=== PATIENT | female | born 1970 | race Caucasian/White ===

== ENCOUNTER 2016-05-15 19:27 | Emergency (ER) | payer OTHER ==
--- NOTE | 2016-05-15 20:31 | DIAGNOSTIC IMAGING REPORT ---
PROCEDURE: XR CHEST 1 VIEW INDICATION: CHEST PAIN, initial encounter TECHNIQUE: Portable AP view 07:50 p.m. COMPARISON: Chest x-ray 04/03/2016 FINDINGS: Lungs are clear. Heart and mediastinum are normal. Thorax is normal. No significant interval change. IMPRESSION: 1. Negative chest.
--- NOTE | 2016-05-15 22:17 | ED NURSING NOTES ---
Clinical Report - Nurses [facility] [address] [place] [address] 05/15/2016 19:27 Patient: JOE CHRISTOPHER TRIAGE Triage time 19:30. Acuity: LEVEL 2. Chief Complaint: CHEST PAIN and SHORTNESS OF BREATH. Alert. --19:35 Lilly Nunez R.N. 19:30 05/15/16. BP: 146/101. HR: 90. RR: 20. O2 saturation: 97%. Temp: 98.2 F (oral). Pain level now: 02/04. --19:35 Lilly Nunez R.N. Weight: 95.2 kg stated. Height/Length: 66.5 inches Per Patient. BMI: 33.4. --19:34 Lilly Nunez R.N. Medications Coumadin Oral (Tablet 5 mg) 1 tablet, daily. LORazepam Oral 2 mg, PRN. Methadone HCl Oral 10mg, daily. Omeprazole Oral 40 mg, daily. Oxybutynin Chloride Oral (Tablet 5 mg) 1 tablet, 2x a day. Propranolol HCl CR Oral 40mg , daily. SUMAtriptan Succinate Oral 100mg. Topiramate Oral 100 mg, 2x a day. TraZODone HCl Oral 300mg, at bedtime. Zofran Oral. --19:32 Lilly Nunez R.N. Percocet Oral (Tablet 10-325 mg), 2x a day. --19:33 Lilly Nunez R.N. Allergies Chantix. Definite Moderate (More depressed) Reglan. Definite Severe (Hallucinations) --19:32 Lilly Nunez R.N. History Arrived by private vehicle. Historian: patient. Accompanied by spouse. Primary physician (zeferino). This started yesterday. Onset. (extreme pain began 10min ago). She has had nausea. 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 PAST MEDICAL HX: Immunizations: up-to-date. SOCIAL HX: Heavy tobacco smoker (cigarette)- less than 1 pack per day. No alcohol use or drug use. NUTRITIONAL RISK ASSESSMENT: The nutritional risk assessment revealed no deficiencies. FUNCTIONAL ASSESSMENT: Functional assessment: no impairments noted. --19:35 Lilly Nunez R.N. PROBLEMS: Anxiety Reaction. Chest Pain. Migraine Headache. Near Syncope. Torticollis. Costochondritis. Atypical Chest Pain. Pulmonary Embolism. Fibromyalgia. Pancreatitis. Hyperlipidemia. Hypertension. Immunizations. Hypercholesterolemia. Depression. Arthritis. Abdominal Pain. Vomiting. Back Pain. Headache. --19:34 Lilly Nunez R.N. Migraine Headache [RuleOut]. Gastroenteritis [RuleOut]. Pancreatitis [RuleOut]. --19:34 Lilly Nunez R.N. ADDITIONAL SURGERIES: Back Surgery. Carpal Tunnel Surgery. Dental Surgery. Hysterectomy. Oophorectomy. --19:34 Lilly Nunez R.N. Interventions ID band on patient. To treatment room. --19:35 Lilly Nunez R.N. PHYSICAL ASSESSMENT To room via wheelchair. Patient gowned. GENERAL / NEURO / PSYCH: Alert. Oriented X 4. Appears anxious. RESPIRATORY: Respirations not labored. CVS: Capillary refill less than 2 seconds. SKIN: Skin is warm and dry. --19:35 Lilly Nunez R.N. NURSING PROGRESS NOTES Head of bed elevated. Two patient identifiers checked. Call light placed in reach. Side rails up x 1. Bed placed in lowest position. Brakes of bed on. --19:35 Lilly Nunez R.N. air sampling and monitoring, pulse oximeter and NIBP monitor placed on patient; monitor alarms on. --19:35 Lilly Nunez R.N. 19:36 05/15/2016 Site #1 started via IV in the left antecubital space with an 20g angiocath, with aseptic technique and good blood return; one attempt. Blood drawn: rainbow set. Labeled in the presence of the patient and sent to the lab. Saline lock flushed with 10 mL saline (started by Randa Polanco RN). --19:36 Lilly Nunez R.N. Oxygen administered by nasal cannula at 2 liters. --19:38 Lilly Nunez R.N. EKG time: (19:38). EKG was performed by a tech and shown to the ED physician. --19:39 Lilly Nunez R.N. 19:36- pt states pain just suddenly stopped. --19:39 Lilly Nunez R.N. 20:02. Portable chest x-ray performed. --20:02 Susu Babcock, ER Tech1 Telemetry strip posted to chart. --20:04 Susu Babcock, ER Tech1 21:43 05/15/16. BP: 127/89. HR: 86. RR: 15. O2 saturation: 100% on room air. --21:43 Lilly Nunez R.N. Patient and family informed about reason for wait and about plan of care. --22:04 Lilly Nunez R.N. 22:24 05/15/2016 Lovenox (Enoxaparin Sodium) Subcutaneous 40 mg given. Given in the right abdomen. Allergies verified and confirmed 5 rights. --22:27 Lilly Nunez R.N. DISPOSITION / DISCHARGE 22:25 05/15/2016 Site #1 removed upon admission. Catheter intact. Manual pressure and bandage applied. --22:28 Lilly Nunez R.N. Condition at departure: improved and stable. No learning barriers present. Discharge instructions provided and reviewed with the patient. Patient verbalized understanding. Written instructions provided in Russian. ( extensive teaching done concerning "if this happens again, what to do", pt instructed to call on-call MD from PCP office and discuss if pt should go to ED or not. Patient states understanding & agrees to plan of care.). The patient was discharged home and accompanied by spouse. She left the Emergency Department ambulatory and via private vehicle. Spouse driving. --22:30 Lilly Nunez R.N. 22:27 05/15/16. BP: 111/72. HR: 76. RR: 24. O2 saturation: 100% on room air. Temp: deferred. Ross-Umana pain scale: 2/10. --22:30 Lilly Nunez R.N. Locked/Released at 05/15/2016 22:30 by Lilly Nunez R.N.
--- NOTE | 2016-05-15 22:17 | ED ORDER SUMMARY ---
..... Patient: JOE CHRISTOPHER OrderSheet [facility] VisitID: [id number] [address] [place] [address] 45y, F Registration Date/Time: 05/15/2016 ORDER SHEET Weight: 95.2 kg (stated) Allergies: Chantix, Reglan GENERAL ORDERS: Chest 1V Urgent (19:31 05/15/2016 Charanjit VIEIRA) (Ack 19:34 NHouse ER Tech1) (20:04 AMcQuoid ER Tech1) Hse Advisor (Continuous) (19:05/15/2016 Charanjit VIEIRA) (19:37 RCollier R.N.) CBC w Diff Urgent (:05/15/2016 Charanjit VIEIRA) (Ack 19:34 [place] ER TechToya) (22:02 RCollier R.N.) CMP Urgent (19:05/15/2016 Charanjit VIEIRA) (Ack 19:34 [place] ER Tech1) (22:02 RCollier R.N.) UA-Culture if indicated Urgent (19:32 05/15/2016 Charanjit VIEIRA) (Ack 19:34 [place] ER Etta) (21:58 Charanjit VIEIRA) (Cancelled: Other21:58 Charanjit VIEIRA) PT with INR Urgent (19:32 05/15/2016 Charanjit VIEIRA) (Ack 19:34 [place] ER TechToya) (22:02 RCollier R.N.) PTT Urgent (19:32 05/15/2016 Charanjit VIEIRA) (Ack 19:34 [place] ER TechToya) (22:02 RCollier R.N.) Amylase Urgent (19:32 05/15/2016 Charanjit VIEIRA) (Ack 19:34 [place] ER TechToya) (22:02 RCollier R.N.) Lipase Urgent (19:05/15/2016 Charanjit VIEIRA) (Ack 19:34 [place] ER TechToya) (22:02 RCollier R.N.) BNP Urgent (19:32 05/15/2016 Charanjit VIEIRA) (Ack 19:34 MDouse ER TechToya) (22:02 RCollier R.N.) D-Dimer Urgent (19:32 05/15/2016 Charanjit VIEIRA) (Ack 19:34 MDouse ER Tech1) (22:02 RCollier R.N.) CPK Urgent (19:32 05/15/2016 Charanjit VIEIRA) (Ack 19:34 MDouse ER Tech1) (22:02 RCollier R.N.) Troponin-I Urgent (19:32 05/15/2016 Charanjit VIEIRA) (Ack 19:34 MDouse ER Tech1) (22:02 RCollier R.N.) Urine Urgent (19:32 05/15/2016 Charanjit VIEIRA) (Ack 19:34 MDouse ER Tech1) Oxygen (2 L/min) (NC) (19:32 05/15/2016 Charanjit VIEIRA) (19:37 RCollier R.N.) Pulse oximeter (19:32 05/15/2016 Charanjit VIEIRA) (19:37 RCollier R.N.) EKG - ER Stat (19:32 05/15/2016 Charanjit VIEIRA) (19:37 RCollier R.N.) MEDICATION ORDERS: Aspirin PO 325 mg (Do not crush or chew, NOW) (19:32 05/15/2016 Charanjit VIEIRA) (Ack 19:37 RCollier R.N.) Lovenox Subcut 40 mg (HIGH ALERT MEDICATION, NOW) (22:07 05/15/2016 Charanjit VIEIRA) (Ack 22:13 RCollier R.N.) (22:27 RCollier R.N.) IV FLUIDS: IV Saline Lock (19:32 05/15/2016 Charanjit VIEIRA) (Ack 19:37 RCollier R.N.) ORDER SHEET NOTES: [Electronically signed by Lilly Nunez R.N. (22:30 05/15/2016)] [Electronically signed by Josue Cuadra MD (04:49 05/17/2016)] [Electronically locked/signed by Lilly Nunez R.N. (22:30 05/15/2016)]
--- NOTE | 2016-05-15 22:17 | ED NURSING NOTES ---
Clinical Report - Nurses [facility] [address] [place] [address] 05/15/2016 19:27 Patient: JOE CHRISTOPHER TRIAGE Triage time 19:30. Acuity: LEVEL 2. Chief Complaint: CHEST PAIN and SHORTNESS OF BREATH. Alert. --19:35 Lilly Nunez R.N. 19:30 05/15/16. BP: 146/101. HR: 90. RR: 20. O2 saturation: 97%. Temp: 98.2 F (oral). Pain level now: 02/04. --19:35 Lilly Nunez R.N. Weight: 95.2 kg stated. Height/Length: 66.5 inches Per Patient. BMI: 33.4. --19:34 Lilly Nunez R.N. Medications Coumadin Oral (Tablet 5 mg) 1 tablet, daily. LORazepam Oral 2 mg, PRN. Methadone HCl Oral 10mg, daily. Omeprazole Oral 40 mg, daily. Oxybutynin Chloride Oral (Tablet 5 mg) 1 tablet, 2x a day. Propranolol HCl CR Oral 40mg , daily. SUMAtriptan Succinate Oral 100mg. Topiramate Oral 100 mg, 2x a day. TraZODone HCl Oral 300mg, at bedtime. Zofran Oral. --19:32 Lilly Nunez R.N. Percocet Oral (Tablet 10-325 mg), 2x a day. --19:33 Lilly Nunez R.N. Allergies Chantix. Definite Moderate (More depressed) Reglan. Definite Severe (Hallucinations) --19:32 Lilly Nunez R.N. History Arrived by private vehicle. Historian: patient. Accompanied by spouse. Primary physician (zeferino). This started yesterday. Onset. (extreme pain began 10min ago). She has had nausea. 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 PAST MEDICAL HX: Immunizations: up-to-date. SOCIAL HX: Heavy tobacco smoker (cigarette)- less than 1 pack per day. No alcohol use or drug use. NUTRITIONAL RISK ASSESSMENT: The nutritional risk assessment revealed no deficiencies. FUNCTIONAL ASSESSMENT: Functional assessment: no impairments noted. --19:35 Lilly Nunez R.N. PROBLEMS: Anxiety Reaction. Chest Pain. Migraine Headache. Near Syncope. Torticollis. Costochondritis. Atypical Chest Pain. Pulmonary Embolism. Fibromyalgia. Pancreatitis. Hyperlipidemia. Hypertension. Immunizations. Hypercholesterolemia. Depression. Arthritis. Abdominal Pain. Vomiting. Back Pain. Headache. --19:34 Lilly Nunez R.N. Migraine Headache [RuleOut]. Gastroenteritis [RuleOut]. Pancreatitis [RuleOut]. --19:34 Lilly Nunez R.N. ADDITIONAL SURGERIES: Back Surgery. Carpal Tunnel Surgery. Dental Surgery. Hysterectomy. Oophorectomy. --19:34 Lilly Nunez R.N. Interventions ID band on patient. To treatment room. --19:35 Lilly Nunez R.N. PHYSICAL ASSESSMENT To room via wheelchair. Patient gowned. GENERAL / NEURO / PSYCH: Alert. Oriented X 4. Appears anxious. RESPIRATORY: Respirations not labored. CVS: Capillary refill less than 2 seconds. SKIN: Skin is warm and dry. --19:35 Lilly Nunez R.N. NURSING PROGRESS NOTES Head of bed elevated. Two patient identifiers checked. Call light placed in reach. Side rails up x 1. Bed placed in lowest position. Brakes of bed on. --19:35 Lilly Nunez R.N. layout inspector, pulse oximeter and NIBP monitor placed on patient; monitor alarms on. --19:35 Lilly Nunez R.N. 19:36 05/15/2016 Site #1 started via IV in the left antecubital space with an 20g angiocath, with aseptic technique and good blood return; one attempt. Blood drawn: rainbow set. Labeled in the presence of the patient and sent to the lab. Saline lock flushed with 10 mL saline (started by Randa Polanco RN). --19:36 Lilly Nunez R.N. Oxygen administered by nasal cannula at 2 liters. --19:38 Lilly Nunez R.N. EKG time: (19:38). EKG was performed by a tech and shown to the ED physician. --19:39 Lilly Nunez R.N. 19:36- pt states pain just suddenly stopped. --19:39 Lilly Nunez R.N. 20:02. Portable chest x-ray performed. --20:02 Susu Babcock, ER Tech1 Telemetry strip posted to chart. --20:04 Susu Babcock, ER Tech1 21:43 05/15/16. BP: 127/89. HR: 86. RR: 15. O2 saturation: 100% on room air. --21:43 Lilly Nunez R.N. Patient and family informed about reason for wait and about plan of care. --22:04 Lilly Nunez R.N. 22:24 05/15/2016 Lovenox (Enoxaparin Sodium) Subcutaneous 40 mg given. Given in the right abdomen. Allergies verified and confirmed 5 rights. --22:27 Lilly Nunez R.N. DISPOSITION / DISCHARGE 22:25 05/15/2016 Site #1 removed upon admission. Catheter intact. Manual pressure and bandage applied. --22:28 Lilly Nunez R.N. Condition at departure: improved and stable. No learning barriers present. Discharge instructions provided and reviewed with the patient. Patient verbalized understanding. Written instructions provided in Kosovan. ( extensive teaching done concerning "if this happens again, what to do", pt instructed to call on-call MD from PCP office and discuss if pt should go to ED or not. Patient states understanding & agrees to plan of care.). The patient was discharged home and accompanied by spouse. She left the Emergency Department ambulatory and via private vehicle. Spouse driving. --22:30 Lilly Nunez R.N. 22:27 05/15/16. BP: 111/72. HR: 76. RR: 24. O2 saturation: 100% on room air. Temp: deferred. Ross-Umana pain scale: 2/10. --22:30 Lilly Nunez R.N. Locked/Released at 05/15/2016 22:30 by Lilly Nunez R.N.
--- NOTE | 2016-05-15 22:17 | ED ORDER SUMMARY ---
..... Patient: JOE CHRISTOPHER OrderSheet VisitID: [id number] [address] [place] [address] 45y, F Registration Date/Time: 05/15/2016 ORDER SHEET Weight: 95.2 kg (stated) Allergies: Chantix, Reglan GENERAL ORDERS: Chest 1V Urgent (19:31 05/15/2016 Charanjit VIEIRA) (Ack 19:34 NHouse ER Tech1) (20:04 AMcQuoid ER Tech1) Chief Vendor Quality (Continuous) (19:05/15/2016 Charanjit VIEIRA) (19:37 RCollier R.N.) CBC w Diff Urgent (:05/15/2016 Charanjit VIEIRA) (Ack 19:34 Commnet Wirelessouse ER TechToya) (22:02 RCollier R.N.) CMP Urgent (19:05/15/2016 Charanjit VIEIRA) (Ack 19:34 [employer]ouse ER Tech1) (22:02 RCollier R.N.) UA-Culture if indicated Urgent (19:32 05/15/2016 Charanjit VIEIRA) (Ack 19:34 [employer] ER Etta) (21:58 Charanjit VIEIRA) (Cancelled: Other21:58 Charanjit VIEIRA) PT with INR Urgent (19:32 05/15/2016 Charanjit VIEIRA) (Ack 19:34 [employer]ouse ER TechToya) (22:02 RCollier R.N.) PTT Urgent (19:32 05/15/2016 Charanjit VIEIRA) (Ack 19:34 [employer] ER TechToya) (22:02 RCollier R.N.) Amylase Urgent (19:32 05/15/2016 Charanjit VIEIRA) (Ack 19:34 [employer] ER TechToya) (22:02 RCollier R.N.) Lipase Urgent (19:05/15/2016 Charanjit VIEIRA) (Ack 19:34 [employer] ER TechToya) (22:02 RCollier R.N.) BNP Urgent (19:32 05/15/2016 Charanjit VIEIRA) (Ack 19:34 [place] ER TechToya) (22:02 RCollier R.N.) D-Dimer Urgent (19:32 05/15/2016 Charanjit VIEIRA) (Ack 19:34 UTouse ER Tech1) (22:02 RCollier R.N.) CPK Urgent (19:32 05/15/2016 Charanjit VIEIRA) (Ack 19:34 UTouse ER Tech1) (22:02 RCollier R.N.) Troponin-I Urgent (19:32 05/15/2016 Charanjit VIEIRA) (Ack 19:34 UTouse ER Tech1) (22:02 RCollier R.N.) Urine Urgent (19:32 05/15/2016 Charanjit VIEIRA) (Ack 19:34 UTouse ER Tech1) Oxygen (2 L/min) (NC) (19:32 05/15/2016 Charanjit VIEIRA) (19:37 RCollier R.N.) Pulse oximeter (19:32 05/15/2016 Charanjit VIEIRA) (19:37 RCollier R.N.) EKG - ER Stat (19:32 05/15/2016 Charanjit VIEIRA) (19:37 RCollier R.N.) MEDICATION ORDERS: Aspirin PO 325 mg (Do not crush or chew, NOW) (19:32 05/15/2016 Charanjit VIEIRA) (Ack 19:37 RCollier R.N.) Lovenox Subcut 40 mg (HIGH ALERT MEDICATION, NOW) (22:07 05/15/2016 Charanjit VIEIRA) (Ack 22:13 RCollier R.N.) (22:27 RCollier R.N.) IV FLUIDS: IV Saline Lock (19:32 05/15/2016 Charanjit VIEIRA) (Ack 19:37 RCollier R.N.) ORDER SHEET NOTES: [Electronically signed by Lilly Nunez R.N. (22:30 05/15/2016)] [Electronically signed by Josue Cuadra MD (04:49 05/17/2016)] [Electronically locked/signed by Lilly Nunez R.N. (22:30 05/15/2016)]
--- NOTE | 2016-05-15 22:17 | ED CLINICAL REPORT ---
Clinical Report - Physicians/Mid Levels [facility] [address] [place] [address] 05/15/2016 19:27 Patient: JOE CHRISTOPHER Time Seen: 19:31. Arrived- By private vehicle. Historian- patient. HISTORY OF PRESENT ILLNESS Chief Complaint: CHEST PAIN. At its maximum, severity described as 10 / 10. When seen in the E.D., severity described as 2 / 10. This started about 1 month ago and is still present. It was abrupt in onset and has been intermittent and waxing/waning. Onset during light activity. It is described as sharp and it is described as located in the central chest area and radiating to the left shoulder. The patient has had moderate difficulty breathing and nausea and has experienced diaphoresis. No vomiting. REVIEW OF SYSTEMS No chills, fever, calf pain, pedal edema or abdominal pain. No constipation, diarrhea, vomiting or urinary problems. She has experienced sweats and had joint pain (for about 1 week). She has had mild neck pain (L sided for about 1 week). She has had a cardiac stress test about 1 year ago. All systems otherwise negative, except as recorded above. PAST HISTORY PCP - Aashish. Problems: Anxiety Reaction. Chest Pain. Migraine Headache. Torticollis. Costochondritis. Atypical Chest Pain. Pulmonary Embolism. Fibromyalgia. Pancreatitis. Hyperlipidemia. Hypertension. Hypercholesterolemia. Depression. Abdominal Pain. Vomiting. Back Pain. Headache. Additional Surgeries: Back Surgery. Carpal Tunnel Surgery. Dental Surgery. Hysterectomy. Oophorectomy. Medications: Percocet Oral (Tablet 10-325 mg), 2x a day. Coumadin Oral (Tablet 5 mg) 1 tablet, daily. LORazepam Oral 2 mg, PRN. Methadone HCl Oral 10mg, daily. Omeprazole Oral 40 mg, daily. Oxybutynin Chloride Oral (Tablet 5 mg) 1 tablet, 2x a day. Propranolol HCl CR Oral 40mg , daily. SUMAtriptan Succinate Oral 100mg. Topiramate Oral 100 mg, 2x a day. TraZODone HCl Oral 300mg, at bedtime. Zofran Oral. Allergies: Chantix. Definite Moderate (More depressed) Reglan. Definite Severe (Hallucinations). SOCIAL HISTORY Current every day heavy tobacco smoker (cigarette)- less than 1 pack per day. No alcohol use or drug use. FAMILY HISTORY No history of aortic aneurysm or dissection. both parents have high cholesterol Mother with PE. ADDITIONAL NOTES The nursing notes have been reviewed. PHYSICAL EXAM Vital Signs: 05/15/2016 19:30 BP: 146/101. HR: 90. RR: 20. O2 saturation: 97%. Temp: 98.2 F. Pain level now: 02/04. Have been reviewed. Appearance: Alert. Eyes: Pupils equal, round and reactive to light. ENT: Pharynx normal. Neck: Normal inspection. Neck supple. CVS: Normal heart rate and rhythm. Heart sounds normal. Respiratory: No respiratory distress. Breath sounds normal. Abdomen: Soft and nontender. Bowel sounds normal. No organomegaly. No mass. Back: Normal external inspection. No CVA tenderness. Skin: Skin warm and dry. Normal skin color. Normal skin turgor. Extremities: Extremities exhibit normal ROM. No calf tenderness. No lower extremity edema. LABS, X-RAYS, AND EKG EKG: No acute process. Prior EKG unavailable. The study has been independently viewed by me. Chest X-ray: Normal Chest X-Ray. Laboratory Tests: CBC w Diff: (SAGAR: 05/15/2016 19:38) ( MsgRcvd 05/15/2016 19:48) Final results Test Result Flag Units (Reference) WHITE BLOOD COUNT 9.4 K/uL (4.5-11.5) RED BLOOD COUNT 5.34 H M/uL (4.00-5.20) HEMOGLOBIN 15.8 gm/dL (12.0-16.0) HEMATOCRIT 47.7 H % (36.0-46.0) MEAN CELL VOLUME 89 fL (80-100) MEAN CORPUSCULAR HGB 30 pg (26-34) MEAN CORPUSCULAR HGB CONC 33 g/dL (31-37) RED CELL DISTRIBUTION WIDTH 14.5 % (11.6-14.8) PLATELET COUNT 261 K/uL (150-400) NEUTROPHIL % 59.5 % (50-75) LYMPH % 31.5 % (25-40) MONO % 5.4 % (3-14) EOSINOPHIL % 2.5 % (0-4) BASOPHIL % 1.1 % (0-2) PT with INR: (SAGAR: 05/15/2016 19:38) ( [facility] [place] 05/15/2016 20:04) Final results Test Result Flag Units (Reference) INR 1.0 (0.8-1.2) Low Intensity Therapy: INR 1.5-2.0 PT range 18.5-23.1Mod.Intensity Therapy: INR 2.0-3.0 PT range 23.1-31.5High Intensity Therapy: INR 2.5-3.5 PT range 27.4-35.5High Intensity Therapy 2: INR 3.0-4.0 PT range 31.5-39.3 APTT 28 SECONDS (24-34) D-DIMER QUANTITATIVE < 0.27 L ug/mLFEU (0.27-0.52) The primary value of this quantitative assay relates toits negative predictive value (i.e. exclusion) of pulmonaryembolism/deep vein thrombosis/DIC.Elevated levels of d-dimer may also occur with:, age, cancer, inflammation, liver disease,post-op, infection, hematoma, coronary disease, peripheralarteriopathy, bleeding disorders and thrombolytic treatment.Results should be correlated with other clinical andradiological data.Testing Methodology: Latex Immunoassay BNP: (SAGAR: 05/15/2016 19:38) ( [facility] [place] 05/15/2016 20:14) Final results Test Result Flag Units (Reference) B-TYPE NATRIURETIC PEPTIDE < 5.0 L pg/ml (5-100) CMP: (SAGAR: 05/15/2016 19:38) ( [facility] [place] 05/15/2016 20:07) Final results Test Result Flag Units (Reference) GLUCOSE 98 mg/dL (70-110) BUN 14 mg/dL (7-18) CREATININE 0.9 mg/dL (0.6-1.3) Estimated GFR >60 mL/min Estimated GFR- >60 mL/min Note: Persistent reduction over 3 months in eGFR<60 mL/min/1.73 m2 defines CKD. Patients with eGFR values>=60 mL/min/1.73 m2 may also have CKD if evidence ofpersistent proteinuria. Additional information may be foundat www.kidney.org. SODIUM 139 mmol/L (136-145) POTASSIUM 3.8 mmol/L (3.5-5.1) CHLORIDE 103 mmol/L (98-107) CARBON DIOXIDE 26 mmol/L (21-32) CALCIUM 8.8 mg/dL (8.5-10.1) TOTAL PROTEIN 7.5 g/dL (6.4-8.2) ALBUMIN 4.0 g/dL (3.3-5.0) BILIRUBIN, TOTAL 0.3 mg/dL (0.0-1.0) ALKALINE PHOSPHATASE 119 H U/L (46-116) AST (SGOT) 18 U/L (15-37) ALT (SGPT) 44 U/L (12-78) LIPASE 164 U/L (73-393) AMYLASE 29 U/L (25-115) CPK 82 U/L (24-260) TROPONIN I <0.05 L ng/mL (0.00-1.5) TROPONIN REFERENCE RANGE:<0.1 NEGATIVE0.1-1.5 INDETERMINANT>1.5 POSITIVE . PROGRESS AND PROCEDURES Course of Care: Patient is stable. Discussed case with patient's primary care provider, (Aashish). Reviewed test results and need for additional work-up. Agreed upon treatment plan and need for patient follow-up. Health care provider will see patient in office. Patient/family counseled. Old medical records reviewed. Disposition: Discharged. Condition: stable. CLINICAL IMPRESSION Atypical chest pain Abnormal tests: (subtherapeutic INR). INSTRUCTIONS (Give herself injections of Lovenox every 12 hours over the next 5 days. Also, take Coumadin 10 mg orally each night for 3 nights. That will include this evening, night and Friday night. On Friday night and Friday night take 5 mg orally each of those evenings. Get your INR checked on Friday and follow up those results with Dr. Zendejas as discussed.). Warnings: Further evaluation is necessary. GENERAL WARNINGS: Return or contact your physician immediately if your condition worsens or changes unexpectedly, if not improving as expected, or if other problems arise. Your Current Medications: CONTINUE TAKING THE FOLLOWING MEDICATIONS: LORazepam Oral : 2 mg PRN. Methadone HCl Oral : 10mg daily. Omeprazole Oral : 40 mg daily. Oxybutynin Chloride Oral : Tablet 5 mg, 1 tablet 2x a day. Percocet Oral : Tablet 10-325 mg, 2x a day. Propranolol HCl CR Oral : 40mg daily. SUMAtriptan Succinate Oral : 100mg. Topiramate Oral : 100 mg 2x a day. TraZODone HCl Oral : 300mg at bedtime. Zofran Oral. Prescription Medications: Lovenox 40 mg SQ. Administer every 12 hours for 5 days. Dispense nine (9) pre-filled syringes. No refills. Understanding of the discharge instructions verbalized by patient. Follow-up with: Lavon Zendejas MD, Family Practice, , [facility], [address] [place] [address] Follow up Friday in five days. (Electronically signed by Josue Cuadra MD 05/17/2016 4:49)
--- NOTE | 2016-05-17 04:50 | ED MAR SUMMARY ---
..... Medication Administration Record [facility] [address] [place] [address] Patient: JOE CHRISTOPHER Visit ID: [id number] 45y, F Weight: 95.2 kg Height/Length: 66.5 in BMI: 33.4 ALLERGIES: Chantix, Reglan Given 22:24 05/15/2016 Lilly Nunez R.N. Medication Administered: LOVENOX [SUBCUTANEOUS] (ENOXAPARIN SODIUM), Dose: 40 mg Subcutaneous. Medication Ordered: Lovenox Subcut 40 mg (HIGH ALERT MEDICATION, NOW).
--- NOTE | 2016-05-17 04:50 | ED DISCHARGE INSTRUCTIONS ---
Patient: JOE CHRISTOPHER General Instructions [facility] VisitID: [id number] Eliane Y[place]Carrie [place] [id number] 45y, F Registration Date/Time: 05/15/2016 Atypical chest pain Abnormal tests: (subtherapeutic INR). INSTRUCTIONS (Give herself injections of Lovenox every 12 hours over the next 5 days. Also, take Coumadin 10 mg orally each night for 3 nights. That will include this evening, night and Friday night. On Friday night and Friday night take 5 mg orally each of those evenings. Get your INR checked on Friday and follow up those results with Dr. Zendejas as discussed.). Warnings: Further evaluation is necessary. GENERAL WARNINGS: Return or contact your physician immediately if your condition worsens or changes unexpectedly, if not improving as expected, or if other problems arise. Your Current Medications: CONTINUE TAKING THE FOLLOWING MEDICATIONS: LORazepam Oral : 2 mg PRN. Methadone HCl Oral : 10mg daily. Omeprazole Oral : 40 mg daily. Oxybutynin Chloride Oral : Tablet 5 mg, 1 tablet 2x a day. Percocet Oral : Tablet 10-325 mg, 2x a day. Propranolol HCl CR Oral : 40mg daily. SUMAtriptan Succinate Oral : 100mg. Topiramate Oral : 100 mg 2x a day. TraZODone HCl Oral : 300mg at bedtime. Zofran Oral. Prescription Medications: Lovenox 40 mg SQ. Administer every 12 hours for 5 days. Dispense nine (9) pre-filled syringes. No refills. Understanding of the discharge instructions verbalized by patient. Follow-up with: Lavon Zendejas MD, Family Practice, , [facility], [address] [place] [phone] Follow up Friday in five days. ADDITIONAL INFORMATION Chest Pain, Uncertain Cause Chest pain can happen for a number of reasons. Sometimes the cause can not be determined. If yourcondition does not seem serious, and your pain does not appear to be coming from your heart, your doctor may recommend watching it closely. Sometimes the signs of a serious problem take more time to appear. Therefore, watch for the warning signs listed below. Home care After your visit, follow these recommendations: Rest today and avoid strenuous activity. Take any prescribed medicine as directed. Follow-up care Follow up with your doctor or this facility as instructed or if you do not start to feel better within 24 hours. Call 911 Get immediate medical attention if any of the following occur: A change in the type of pain: if it feels different, becomes more severe, lasts longer, or begins to spread into your shoulder, arm, neck, jaw or back Shortness of breath or increased pain with breathing Weakness, dizziness, or fainting Rapid heart beat Get prompt medical attention Call your doctor right away if any of the following occur: Cough with dark colored sputum (phlegm) or blood Fever of 100.4F(38C) or higher, or as directed by your health care provider Swelling, pain or redness in one leg You have been given the following additional information: Chest Pain, Uncertain Cause (Electronically signed by Jouse Cuadra MD 05/17/2016 4:49)
--- NOTE | 2016-05-17 04:50 | ED DISCHARGE INSTRUCTIONS ---
Patient: JOE CHRISTOPHER General Instructions [facility] VisitID: [id number] Eliane YenDiane V[place] [id number] 45y, F Registration Date/Time: 05/15/2016 Atypical chest pain Abnormal tests: (subtherapeutic INR). INSTRUCTIONS (Give herself injections of Lovenox every 12 hours over the next 5 days. Also, take Coumadin 10 mg orally each night for 3 nights. That will include this evening, night and Friday night. On Friday night and Friday night take 5 mg orally each of those evenings. Get your INR checked on Friday and follow up those results with Dr. Zendejas as discussed.). Warnings: Further evaluation is necessary. GENERAL WARNINGS: Return or contact your physician immediately if your condition worsens or changes unexpectedly, if not improving as expected, or if other problems arise. Your Current Medications: CONTINUE TAKING THE FOLLOWING MEDICATIONS: LORazepam Oral : 2 mg PRN. Methadone HCl Oral : 10mg daily. Omeprazole Oral : 40 mg daily. Oxybutynin Chloride Oral : Tablet 5 mg, 1 tablet 2x a day. Percocet Oral : Tablet 10-325 mg, 2x a day. Propranolol HCl CR Oral : 40mg daily. SUMAtriptan Succinate Oral : 100mg. Topiramate Oral : 100 mg 2x a day. TraZODone HCl Oral : 300mg at bedtime. Zofran Oral. Prescription Medications: Lovenox 40 mg SQ. Administer every 12 hours for 5 days. Dispense nine (9) pre-filled syringes. No refills. Understanding of the discharge instructions verbalized by patient. Follow-up with: Lavon Zendejas MD, Family Practice, , [facility], [address] [place] [phone] Follow up Friday in five days. ADDITIONAL INFORMATION Chest Pain, Uncertain Cause Chest pain can happen for a number of reasons. Sometimes the cause can not be determined. If yourcondition does not seem serious, and your pain does not appear to be coming from your heart, your doctor may recommend watching it closely. Sometimes the signs of a serious problem take more time to appear. Therefore, watch for the warning signs listed below. Home care After your visit, follow these recommendations: Rest today and avoid strenuous activity. Take any prescribed medicine as directed. Follow-up care Follow up with your doctor or this facility as instructed or if you do not start to feel better within 24 hours. Call 911 Get immediate medical attention if any of the following occur: A change in the type of pain: if it feels different, becomes more severe, lasts longer, or begins to spread into your shoulder, arm, neck, jaw or back Shortness of breath or increased pain with breathing Weakness, dizziness, or fainting Rapid heart beat Get prompt medical attention Call your doctor right away if any of the following occur: Cough with dark colored sputum (phlegm) or blood Fever of 100.4F(38C) or higher, or as directed by your health care provider Swelling, pain or redness in one leg You have been given the following additional information: Chest Pain, Uncertain Cause (Electronically signed by Josue Cuadra MD 05/17/2016 4:49)
--- NOTE | 2016-05-17 04:50 | ED MED RECONCILIATION SUMMARY ---
Patient: JOE CHRISTPOHER Medication Reconciliation Report [facility] VisitID: [id number] [address] [place] [address] 45y, F Registration Date/Time: 05/15/2016 Weight: 95.2 kg Height/Length: 60 in. BMI: 33.4 ALLERGIES: Chantix, Reglan The patient's Home Medications are listed below: CONTINUE TAKING THE FOLLOWING MEDICATIONS: LORazepam Oral 2 mg, PRN Methadone HCl Oral 10mg, daily Omeprazole Oral 40 mg, daily Oxybutynin Chloride Oral (5 mg) 1 tablet, 2x a day Percocet Oral (10-325 mg), 2x a day Propranolol HCl CR Oral 40mg , daily SUMAtriptan Succinate Oral 100mg Topiramate Oral 100 mg, 2x a day TraZODone HCl Oral 300mg, at bedtime Zofran Oral THE FOLLOWING MEDICATIONS NEED TO BE RECONCILED: Coumadin Oral (5 mg) 1 tablet, daily The source(s) of the original Home Medication information: Not obtained. The following Medications were given to the patient in the Emergency Department: Lovenox [Subcutaneous] Subcutaneous 40 mg, administered: 05/15/2016 10:24:00 PM The following Medications were prescribed to the patient: Lovenox 40 mg SQ. Administer every 12 hours for 5 days. Dispense nine (9) pre-filled syringes. No refills. -- Josue Cuadra MD
--- NOTE | 2016-05-17 04:50 | ED MED RECONCILIATION SUMMARY ---
Patient: JOE CHRISTOPHER Medication Reconciliation Report [facility] VisitID: [id number] [address] [place] [address] 45y, F Registration Date/Time: 05/15/2016 Weight: 95.2 kg Height/Length: 60 in. BMI: 33.4 ALLERGIES: Chantix, Reglan The patient's Home Medications are listed below: CONTINUE TAKING THE FOLLOWING MEDICATIONS: LORazepam Oral 2 mg, PRN Methadone HCl Oral 10mg, daily Omeprazole Oral 40 mg, daily Oxybutynin Chloride Oral (5 mg) 1 tablet, 2x a day Percocet Oral (10-325 mg), 2x a day Propranolol HCl CR Oral 40mg , daily SUMAtriptan Succinate Oral 100mg Topiramate Oral 100 mg, 2x a day TraZODone HCl Oral 300mg, at bedtime Zofran Oral THE FOLLOWING MEDICATIONS NEED TO BE RECONCILED: Coumadin Oral (5 mg) 1 tablet, daily The source(s) of the original Home Medication information: Not obtained. The following Medications were given to the patient in the Emergency Department: Lovenox [Subcutaneous] Subcutaneous 40 mg, administered: 05/15/2016 10:24:00 PM The following Medications were prescribed to the patient: Lovenox 40 mg SQ. Administer every 12 hours for 5 days. Dispense nine (9) pre-filled syringes. No refills. -- Josue Cuadra MD
--- NOTE | 2016-05-17 04:50 | ED MAR SUMMARY ---
..... Medication Administration Record [facility] [address] [place] [address] Patient: JOE CHRISTOPHER Visit ID: [id number] 45y, F Weight: 95.2 kg Height/Length: 66.5 in BMI: 33.4 ALLERGIES: Chantix, Reglan Given 22:24 05/15/2016 Lilly Nunez R.N. Medication Administered: LOVENOX [SUBCUTANEOUS] (ENOXAPARIN SODIUM), Dose: 40 mg Subcutaneous. Medication Ordered: Lovenox Subcut 40 mg (HIGH ALERT MEDICATION, NOW).
== END 2016-05-15 22:40 | disposition home or self-care (01) ==
LOC: ED SRH 19:27
DX: R07.89 Other chest pain (principal); R79.1 Abnormal coagulation profile; I10 Essential (primary) hypertension; E78.5 Hyperlipidemia, unspecified; Z86.711 Personal history of pulmonary embolism; Z79.01 Long term (current) use of anticoagulants; Z79.899 Other long term (current) drug therapy; Z88.8 Allergy status to other drugs, medicaments and biological substances
CPT/HCPCS: 90100; 90616; 91320; 91556; 92235; 92530; 92610; 94001; 94060; 95059

== ENCOUNTER → 2016-05-20 | Outpatient (CLI) | payer OTHER | LOC: LAB SRH 14:26 | DX: Z51.81 Encounter for therapeutic drug level monitoring (principal); Z79.01 Long term (current) use of anticoagulants | CPT/HCPCS: 90074; 94001; 94060 ==

== ENCOUNTER 2016-07-12 19:15 | Emergency (ER) | payer OTHER ==
--- NOTE | 2016-07-12 20:03 | DIAGNOSTIC IMAGING REPORT ---
PROCEDURE: CT HEAD WITHOUT CONTRAST INDICATION: HEADACHE TECHNIQUE: Axial CT images were acquired through the head. Coronal and sagittal reformations were created. COMPARISON: 03/01/2016 FINDINGS: No intracranial hemorrhage or extraaxial fluid collections. Ventricles are normal in size, shape and position. There is no mass, mass effect or midline shift. The barnett-white matter differentiation is normal. There is no edema. The calvarium is intact. Occluded right nasal passage. Small mucous retention cyst at the base of the right maxillary sinus. Thickening in the medial anterior ethmoids. Frontal sinuses and mastoid cavities are normally aerated. The extracranial soft tissues and orbits are normal. IMPRESSION: 1. No CT evidence of acute intracranial process. 2. Findings suggestive of upper respiratory congestion. 3. Findings discussed with Kimberly Murray at [address] scans at this facility use dose modulation, iterative reconstruction, and/or weight-based dosing when appropriate to reduce radiation dose to as low as reasonably achievable.
--- NOTE | 2016-07-12 20:54 | ED ORDER SUMMARY ---
..... Patient: JOE CHRISTOPHER OrderSheet [facility] VisitID: [id number] [address] [place] [address] 46y, F Registration Date/Time: 07/12/2016 ORDER SHEET Weight: 92.9 kg (estimated) Allergies: Chantix, Reglan, Benadryl GENERAL ORDERS: CT Head wo Cont Urgent (19:38 07/12/2016 HBivens A.R.N.P.) (Ack 19:42 IJurca ER Tech1) (19:55 MCampbell) MEDICATION ORDERS: IV FLUIDS: IV NS : initial bolus 1000 mL (1000 mL/hr), then none - (NOW) (19:38 07/12/2016 HBivens A.R.N.P.) (20:05 SSambou R.N.) Reglan IV 10 mg (NOW) (19:38 07/12/2016 HBivens A.R.N.P.) (Cancelled: [id number] HBivens A.R.N.P.) Toradol IV 30 mg (NOW) (19:38 07/12/2016 HBivens A.R.N.P.) (20:06 SSambou R.N.) IV Saline Lock (19:38 07/12/2016 HBivens A.R.N.P.) (Ack 20:02 SSambou R.N.) (20:03 SSambou R.N.) Zofran IV 4 mg (NOW) (20:15 07/12/2016 HBivens A.R.N.P.) (20:40 SSambou R.N.) ORDER SHEET NOTES: [Electronically signed by Sheriff Cathi Davis (22:30 07/12/2016)] [Electronically signed by Kimberly Murray A.R.N.P. (23:03 07/12/2016)] [Electronically locked/signed by Sheriff Cathi Davis (22:30 07/12/2016)]
--- NOTE | 2016-07-12 20:54 | ED NURSING NOTES ---
Clinical Report - Nurses [facility] [address] [place] [address] 07/12/2016 19:16 Patient: JOE CHRISTOPHER TRIAGE Triage time 19:23. Acuity: LEVEL 3. Chief Complaint: MIGRAINE HEADACHE. Alert. --19:30 Sheriff Davis R.N. 19:23 07/12/16. BP: 160/88. HR: 110. RR: 22. O2 saturation: 95%. Temp: 98.1 F. Pain level now: 01/05. --19:30 Sheriff Davis R.N. 19:23 07/12/16. BP: 160/88. HR: 110. RR: 22. O2 saturation: 95%. Temp: 98.1 F. Pain level now: 01/05. --19:30 Sheriff Davis R.N. Weight: 92.9 kg estimated. Height/Length: 66 inches Estimated. BMI: 33.1. --19:32 Sheriff Davis R.N. Medications Coumadin Oral (Tablet 5 mg) 1 tablet, daily. Omeprazole Oral 40 mg, daily. Oxybutynin Chloride Oral (Tablet 5 mg) 1 tablet, 2x a day. Percocet Oral (Tablet 10-325 mg), 2x a day. Propranolol HCl CR Oral 40mg , daily. SUMAtriptan Succinate Oral 100mg. Topiramate Oral 100 mg, 2x a day. TraZODone HCl Oral 300mg, at bedtime. --19:26 Sheriff Davis R.N. Allergies Chantix. Definite Moderate (More depressed) Reglan. Definite Severe (Hallucinations) --19:26 Sheriff Davis R.N. Benadryl. --19:27 Sheriff Davis R.N. History Historian: patient. Arrived walking from home and accompanied by spouse. This started today Woke up with headache, medication did not help. This is a recurrent problem. PAST MEDICAL HX: Headaches. Immunizations: up-to-date. SOCIAL HX: Light tobacco smoker- less than 1/2 a pack per day. No alcohol use or drug use. FALL RISK ASSESSMENT: Fall risk assessment completed. No fall risk identified. NUTRITIONAL RISK ASSESSMENT: The nutritional risk assessment revealed no deficiencies. FUNCTIONAL ASSESSMENT: Functional assessment: no impairments noted. LEARNING NEEDS ASSESSMENT: The learning needs assessment revealed no barriers. SKIN INTEGRITY ASSESSMENT: Skin integrity risk assessment completed. No skin integrity risk identified. --19:30 Sheriff Davis R.N. PROBLEMS: Abnormal Test. Anxiety Reaction. Chest Pain. Migraine Headache. Near Syncope. Torticollis. Costochondritis. Atypical Chest Pain. Pulmonary Embolism. Fibromyalgia. Pancreatitis. Hyperlipidemia. Hypertension. LNMP - Last Normal Menstrual Period. Hypercholesterolemia. Depression. Arthritis. Abdominal Pain. Vomiting. Back Pain. --21:13 Sheriff Davis R.N. Migraine Headache [RuleOut]. Gastroenteritis [RuleOut]. --21:13 Sheriff Davis R.N. Interventions ID band on patient. To room. --19:30 Sheriff Davis R.N. PHYSICAL ASSESSMENT GENERAL / NEURO / PSYCH: Alert. Oriented X 4. Speech within normal limits. RESPIRATORY: Respirations not labored. CVS: Capillary refill less than 2 seconds. SKIN: Skin is warm and dry. --19:30 Sheriff Davis R.N. NURSING PROGRESS NOTES Head of bed elevated. Two patient identifiers checked. Call light placed in reach. Side rails up x 2. Bed placed in lowest position. Brakes of bed on. Patient ready for evaluation- chart flagged. --19:31 Sheriff Davis R.N. 20:03 07/12/2016 Site #1 started via IV in the left antecubital space with an 20g angiocath, with aseptic technique and good blood return; one attempt. Blood drawn: rainbow set. Saline lock flushed with 10 mL saline. --20:03 Sheriff Davis R.N. 20:04 07/12/2016 Started bag #1 1000 mL IV Fluids IV NS (Saline); at 999 mL/hr over 1 hour(s) via site #1. Allergies verified and confirmed 5 rights. IV patency established site checked: no pain, redness, or swelling flushed thoroughly pre- and post-medication administration. --20:05 Sheriff Davis R.N. 20:05 07/12/2016 Toradol IVP 30 mg given over 1 minute(s) via site #1. Allergies verified and confirmed 5 rights. IV patency established site checked: no pain, redness, or swelling flushed thoroughly pre- and post-medication administration. IVP given by RN. --20:06 Sheriff Davis R.N. 20:39 07/12/2016 Zofran (Ondansetron HCl) IVP 4 mg given over 1 minute(s) via site #1. Allergies verified and confirmed 5 rights. IV patency established site checked: no pain, redness, or swelling flushed thoroughly pre- and post-medication administration. IVP given by RN. --20:40 Sheriff Davis R.N. 20:42 07/12/2016 IV Fluids IV NS Discontinued: bag #1 infused. Total amount infused: 1000 mL. IV patency established IV site checked: no pain, redness, or swelling IV flushed thoroughly. --20:42 Sheriff Davis R.N. 21:00 07/12/16. BP: 121/70. HR: 108. RR: 18. O2 saturation: 100%. Temp: 97.8 F. Pain level now: 10/05. --21:00 Sheriff Davis R.N. 21:00 07/12/16. BP: 121/70. HR: 108. RR: 18. O2 saturation: 100%. Temp: 97.8 F. Pain level now: 10/05. --21:01 Sheriff Davis R.N. ( Patient went to the car with without staff notice with IV on Lt AC prior to discharge. ADJUNCT SOCIOLOGY PROFESSOR notified.). --22:03 Sheriff Davis R.N. DISPOSITION / DISCHARGE The patient was discharged by the nurse practitioner. She was discharged home and accompanied by spouse. She left the Emergency Department ambulatory and via private vehicle. Spouse driving. FALL RISK ASSESSMENT: Fall risk assessment completed. No fall risk identified. --21:47 Sheriff Davis R.N. 21:45 07/12/16. BP: 132/86. HR: 87. RR: 22. O2 saturation: 96%. Temp: 98.1 F. Pain level now: 11/04. --21:47 Sheriff Davis R.N. Locked/Released at 07/12/2016 22:30 by Sheriff Davis R.N.
--- NOTE | 2016-07-12 20:54 | ED ORDER SUMMARY ---
..... Patient: JOE CHRISTOPHER OrderSheet [facility] VisitID: [id number] [address] [place] [address] 46y, F Registration Date/Time: 07/12/2016 ORDER SHEET Weight: 92.9 kg (estimated) Allergies: Chantix, Reglan, Benadryl GENERAL ORDERS: CT Head wo Cont Urgent (19:38 07/12/2016 HBivens A.R.N.P.) (Ack 19:42 IJurca ER Tech1) (19:55 MCampbell) MEDICATION ORDERS: IV FLUIDS: IV NS : initial bolus 1000 mL (1000 mL/hr), then none - (NOW) (19:38 07/12/2016 HBivens A.R.N.P.) (20:05 SSambou R.N.) Reglan IV 10 mg (NOW) (19:38 07/12/2016 HBivens A.R.N.P.) (Cancelled: [id number] HBivens A.R.N.P.) Toradol IV 30 mg (NOW) (19:38 07/12/2016 HBivens A.R.N.P.) (20:06 SSambou R.N.) IV Saline Lock (19:38 07/12/2016 HBivens A.R.N.P.) (Ack 20:02 SSambou R.N.) (20:03 SSambou R.N.) Zofran IV 4 mg (NOW) (20:15 07/12/2016 HBivens A.R.N.P.) (20:40 SSambou R.N.) ORDER SHEET NOTES: [Electronically signed by Sheriff Cathi Davis (22:30 07/12/2016)] [Electronically signed by Kimberly Murray A.R.N.P. (23:03 07/12/2016)] [Electronically locked/signed by Sheriff Cathi Davis (22:30 07/12/2016)]
--- NOTE | 2016-07-12 20:54 | ED CLINICAL REPORT ---
Clinical Report - Physicians/Mid Levels [facility] [address] [place] [address] 07/12/2016 19:16 Patient: JOE CHRISTOPHER Time Seen: 19:28; initial patient contact, initial documentation, patient care assumed. Arrived- By private vehicle. Historian- patient and spouse. HISTORY OF PRESENT ILLNESS Is still present. Chief Complaint: HEADACHE. This started today. It is described as similar to previous headaches and "pain". Located in the left hemicranial region. Modifying factors: worsened by bright light; relieved by nothing. The patient has had photophobia, nausea and vomiting. The vomiting has occurred several times. No preceding symptoms, blurred vision, numbness or weakness. (took x2 imitrex, headache started this am on R, took imitrex, and went to bed, headache was relieved but then came back on L, took another imitrex, no relief). No recent travel. Similar symptoms previously: Chronically, milder. ( hasn't headache this bad in years, but this is not her worst headache). Recent medical care: Not recently seen/assessed. REVIEW OF SYSTEMS No fever, sinus pressure, ear pain, sore throat or carbon monoxide exposure. No tick bite, head injury, chest pain, difficulty breathing or cough. All systems otherwise negative, except as recorded above. PAST HISTORY See nurses notes. PROBLEMS: Anxiety Reaction. Chest Pain. Migraine Headache. Near Syncope. Torticollis. Costochondritis. Atypical Chest Pain. Pulmonary Embolism. Fibromyalgia. Pancreatitis. Hyperlipidemia. Hypertension. Immunizations. Hypercholesterolemia. Depression. Arthritis. Abdominal Pain. Vomiting. Back Pain. Headache. --19:34 Lilly Nunez R.N. Migraine Headache [RuleOut]. Gastroenteritis [RuleOut]. Pancreatitis [RuleOut]. --19:34 Lilly Nunez R.N. ADDITIONAL SURGERIES: Back Surgery. Carpal Tunnel Surgery. Dental Surgery. Hysterectomy. Oophorectomy. --19:34 Lilly Nunez R.N. SOCIAL HISTORY Light tobacco smoker. No alcohol use or drug use. No recent travel. Is a local resident. FAMILY HISTORY Negative. ADDITIONAL NOTES The nursing notes have been reviewed with agreement regarding the chief complaint, HPI, ROS, PMH and patient medications and allergies. PHYSICAL EXAM Vital Signs: 07/12/2016 19:23 BP: 160/88. HR: 110. RR: 22. O2 saturation: 95%. Temp: 98.1 F. Pain level now: 9/10. Have been reviewed as abnormal and appear to be correct. Hypertensive. Tachycardic. Respiratory rate normal. Temperature normal. Oxygen saturation normal. Appearance: Alert. No acute distress. Eyes: Pupils equal, round and reactive to light. Eyes normal inspection. ENT: Ears normal. Nose normal. Pharynx normal. Neck: Normal inspection. Neck supple. CVS: Normal heart rate and rhythm. Heart sounds normal. Pulses normal. Respiratory: No respiratory distress. Breath sounds normal. Abdomen: Soft and nontender. No organomegaly. Back: Normal inspection. Skin: Skin warm and dry. Normal skin color. No rash. Normal skin turgor. Extremities: Extremities exhibit normal ROM. No lower extremity edema. Neuro: Oriented X 3. Alert. Mood/affect normal. Speech normal. Cranial nerves normal (as tested). No cerebellar findings. No motor deficit. No sensory deficit. LABS, X-RAYS, AND EKG CT Head: . (IMPRESSION: 1. No CT evidence of acute intracranial process. 2. Findings suggestive of upper respiratory congestion. 3. Findings discussed with Kimberly Murray at [address] scans at this facility use dose modulation, iterative reconstruction, and/or weight-based dosing when appropriate to reduce radiation dose to as low as reasonably achievable. Electronically Final signed by:Kavya Benjamin MD 07/12/2016 7:59:21 PM). The study was interpreted by the radiologist and discussed with the radiologist. PROGRESS AND PROCEDURES Course of Care: nurse reporting pt is allergic to reglan 2023. pt now sitting up stating her head still hurts, but the meds we gave helped tremedously and she felt much better, tx options discussed with pt's current meds and what she could take for her headaches 2199. nurse asked me to go back in room to talk to pt, pt upset saying her headache came right back, nurse also reporting pt left, went outside, with iv, went to car and came back inside, pt wanting more pain meds and screaming at nurse back in room, pt mad, stating that there was nothing we could do for her, that she knew my answer to meds would be no, because it was at my discretion and I wasn't willing to help her, stating that Jenifer saw her last time and warned her of the narc rule, but she knows that this is not a rule, that we choose who we give pain meds too, offered to look up her hx, pt declined saying she already knew the answer because she had been here multiple times and she was warned, pt still screaming, and stating that they can't get the rx filled tonight because her has to be up at 0330 for work, and they are not driving to [facility], offered to try and give her something else im, more toradol or check her records, pt refused, pt stating dilaudid was given last time and that is what helps, but she knew we would say no to it, pt also accusing the nurses of lying to me or her or both, pt then walked out then less than 5 min pt came back in room, asked me if I knew some surgeon by the name of Dr Hood, she then gets his card out of her purse, telling me I need to send her records to him, pt again walks out RN Ritu and I reviewed pt's er visits, and pt has hit the max 3 controlled substances in 12 mos policy. Patient and spouse counseled in person regarding the patient's stable condition, test results and diagnosis. 20:24. Differential Diagnosis: I considered migraine, cluster headache, subarachnoid hemorrhage, intracranial bleed, vascular malformation, cerebral aneurysm, vascular dissection, vasculitis, temporal arteritis, brain abscess, sinusitis, influenza, viral syndrome, analgesic abuse, hypoglycemia and trigeminal neuralgia as a possible cause of headache in this patient. This is a partial list of diagnoses considered. Above considerations are based on history, physical exam, laboratory data and other information. Differential diagnosis was discussed with patient. Disposition: Discharged home in good and improved condition (20:54). Condition: good and stable. CLINICAL IMPRESSION Chronic, poorly controlled periodic headache syndrome. 07/12/2016 21:00 BP: 121/70. HR: 108. RR: 18. O2 saturation: 100%. Temp: 97.8 F. Pain level now: 10. Vital Signs: have been reviewed as abnormal and appear to be correct. Blood pressure normal. Tachycardic. Respiratory rate normal. Oxygen saturation normal. Acute viral rhinitis. No airway obstruction. INSTRUCTIONS Warnings: GENERAL WARNINGS: Return or contact your physician immediately if your condition worsens or changes unexpectedly, if not improving as expected, or if other problems arise. SPECIFICALLY, return if you develop fever, vomiting, numbness, weakness, difficulty thinking, visual disturbances, fainting or extreme fatigue. Prescription Medications: Zofran 4 mg: Take 1 orally every six hours as needed for nausea/vomiting. Dispense ten (10). No refills. Substitution is permissible. Toradol 10 mg tablets: Take 1 tablet orally every 6 hours as needed. Dispense fifteen (15). No refills. Substitution is permissible. Follow-up: Follow up with your doctor in about two days even if well. Call for an appointment. Summary of care provided to patient. Blood pressure screening was not performed during this visit because blood pressure screening was precluded by clinical urgency. Understanding of the discharge instructions verbalized by patient. (Electronically signed by Kimberly Murray A.R.N.P. 07/12/2016 23:03) Addenda for JOE CHRISTOPHER Yury VisitID: [id number] Date: 07/12/2016 07/12/2016 22:43 Discharge instructions given to patient. Discahrge education given, verbalised understanding. (Electronically signed by Sheriff Cathi Davis 07/12/2016 22:43)
--- NOTE | 2016-07-12 23:04 | ED DISCHARGE INSTRUCTIONS ---
Patient: JOE CHRISTOPHER General Instructions [facility] VisitID: [id number] [place] [address] 46y, F Registration Date/Time: 07/12/2016 Chronic, poorly controlled periodic headache syndrome. 07/12/2016 21:00 BP: 121/70. HR: 108. RR: 18. O2 saturation: 100%. Temp: 97.8 F. Pain level now: 10/05. Vital Signs: have been reviewed as abnormal and appear to be correct. Blood pressure normal. Tachycardic. Respiratory rate normal. Oxygen saturation normal. Acute viral rhinitis. No airway obstruction. INSTRUCTIONS Warnings: GENERAL WARNINGS: Return or contact your physician immediately if your condition worsens or changes unexpectedly, if not improving as expected, or if other problems arise. SPECIFICALLY, return if you develop fever, vomiting, numbness, weakness, difficulty thinking, visual disturbances, fainting or extreme fatigue. Prescription Medications: Zofran 4 mg: Take 1 orally every six hours as needed for nausea/vomiting. Dispense ten (10). No refills. Substitution is permissible. Toradol 10 mg tablets: Take 1 tablet orally every 6 hours as needed. Dispense fifteen (15). No refills. Substitution is permissible. Follow-up: Follow up with your doctor in about two days even if well. Call for an appointment. Summary of care provided to patient. Blood pressure screening was not performed during this visit because blood pressure screening was precluded by clinical urgency. Understanding of the discharge instructions verbalized by patient. ADDITIONAL INFORMATION Headache [Unspecified] The cause of your headache today is not clear, but it does not appear to be the sign of any serious illness. Under stress, some people tense the muscles of their shoulder, neck and scalp without knowing it. If this condition lasts long enough, a TENSION HEADACHE can occur. A MIGRAINE HEADACHE is caused by changes in blood flow to the brain. A migraine attack may be triggered by emotional stress, hormone changes during the menstrual cycle, oral contraceptives, alcohol use, certain foods containing tyramine, eye strain, weather changes, missing meals, lack of sleep or oversleeping. Other causes of headache include a viral illness with high fever, head injury with concussion, sinus, ear or throat infection, dental pain and TMJ (jaw joint) pain. More serious but less common causes of headache include stroke, brain hemorrhage, brain tumor, meningitis and encephalitis. Home Care: If you were given pain medicine for this headache, do not drive yourself home. Arrange for a ride, instead. When you get home, try to sleep. You should feel much better when you wake up. Apply heat to the back of your neck to relieve neck muscle spasm. Migraine headaches may respond best to an ice pack on the forehead or at the base of the skull. If you are having nausea or vomiting, follow a light diet until your headache is relieved. If you have a migraine type headache, use sunglasses when in the daylight or around bright indoor lighting until symptoms improve. Bright glaring light can worsen this kind of headache. Follow Up with your doctor if the headache is not better within the next 24 hours. If you have frequent headaches you should discuss a treatment plan with your primary care doctor. By being aware of the earliest signs of headache, and starting treatment right away, you may be able to stop the pain yourself. Get Prompt Medical Attention if any of the following occur: Worsening of your head pain or no improvement within 24 hours Repeated vomiting (unable to keep liquids down) Fever of 100.4F (38C) or higher, or as directed by your healthcare provider Stiff neck Extreme drowsiness, confusion or fainting Dizziness, vertigo (dizziness with spinning sensation) Weakness of an arm or leg or one side of the face Difficulty with speech or vision Viral Respiratory Illness [Adult] You have an Upper Respiratory Illness (URI) caused by a virus. This illness is contagious during the first few days. It is spread through the air by coughing and sneezing or by direct contact (touching the sick person and then touching your own eyes, nose or mouth). Most viral illnesses go away within 7-10 days with rest and simple home remedies. Sometimes, the illness may last for several weeks. Antibiotics will not kill a virus and are generally not prescribed for this condition. Home Care: 1) If symptoms are severe, rest at home for the first 2-3 days. When you resume activity, don't let yourself get too tired. 2) Avoid being exposed to cigarette smoke (yours or others). 3) Tylenol (acetaminophen) or ibuprofen (Advil, Motrin) will help fever, muscle aching and headache. (Persons under 18 with fever should not take aspirin since this may cause liver damage.) 4) Your appetite may be poor, so a light diet is fine. Avoid dehydration by drinking 6-8 glasses of fluids per day (water, soft drinks, juices, tea, soup). Extra fluids will help loosen secretions in the nose and lungs. 5) Hjrs-lzb-[id number] cold medicines will not shorten the length of time youre sick, but they may be helpful for the following symptoms: cough (Robitussin DM); sore throat (Chloraseptic lozenges or spray); nasal and sinus congestion (Actifed, Sudafed, Chlortrimeton). Follow Up with your doctor or as advised if you dont improve over the next week. Get Prompt Medical Attention if any of the following occur: -- Cough with lots of colored sputum (mucus) or blood in your sputum -- Chest pain, shortness of breath, wheezing or have trouble breathing -- Severe headache; face, neck or ear pain -- Fever over 100.4 F (38.0 C) for more than three days -- You cant swallow due to throat pain Ondansetron Oral disintegrating tablet What is this medicine? ONDANSETRON (on ZO se bree) is used to treat nausea and vomiting caused by chemotherapy. It is also used to prevent or treat nausea and vomiting after surgery. How should I use this medicine? These tablets are made to dissolve in the mouth. Do not try to push the tablet through the foil backing. With dry hands, peel away the foil backing and gently remove the tablet. Place the tablet in the mouth and allow it to dissolve, then swallow. While you may take these tablets with water, it is not necessary to do so. Talk to your educational diagnostician regarding the use of this medicine in children. Special care may be needed. What side effects may I notice from receiving this medicine? Side effects that you should report to your doctor or health small animal caretaker as soon as possible: allergic reactions like skin rash, itching or hives, swelling of the face, lips, or tongue breathing problems dizziness fast or irregular heartbeat feeling faint or lightheaded, falls fever and chills swelling of the hands and feet tightness in the chest Side effects that usually do not require medical attention (report to your doctor or health small animal caretaker if they continue or are bothersome): constipation or diarrhea headache What may interact with this medicine? Do not take this medicine with any of the following medications: -apomorphine -cisapride -dofetilide -dronedarone -pimozide -thioridazine -ziprasidone This medicine may also interact with the following medications: -carbamazepine -phenytoin -rifampicin -tramadol -other medicines that prolong the QT interval (cause an abnormal heart rhythm) What if I miss a dose? If you miss a dose, take it as soon as you can. If it is almost time for your next dose, take only that dose. Do not take double or extra doses. Where should I keep my medicine? Keep out of the reach of children. Store between 2 and 30 degrees C (36 and 86 degrees F). Throw away any unused medicine after the expiration date. What should I tell my health care provider before I take this medicine? They need to know if you have any of these conditions: heart disease history of irregular heartbeat liver disease low levels of magnesium or potassium in the blood an unusual or allergic reaction to ondansetron, granisetron, other medicines, foods, dyes, or preservatives or trying to get breast-feeding What should I watch for while using this medicine? Check with your doctor or health small animal caretaker as soon as you can if you have any sign of an allergic reaction. Ketorolac Tromethamine Oral tablet What is this medicine? KETOROLAC (clinton toe ROLE ak) is a non-steroidal anti-inflammatory drug (NSAID). It is used for a short while to treat moderate to severe pain, including pain after surgery. It should not be used for more than 5 days. How should I use this medicine? Take this medicine by mouth with a full glass of water. Follow the directions on the prescription label. Take your medicine at regular intervals. Do not take your medicine more often than directed. Do not take more than the recommended dose. A special MedGuide will be given to you by the pharmacist with each prescription and refill. Be sure to read this information carefully each time. Talk to your educational diagnostician regarding the use of this medicine in children. While this drug may be prescribed for children as young as 16 years of age for selected conditions, precautions do apply. Patients over 65 years old may have a stronger reaction and need a smaller dose. What side effects may I notice from receiving this medicine? Side effects that you should report to your doctor or health small animal caretaker as soon as possible: allergic reactions like skin rash, itching or hives, swelling of the face, lips, or tongue black or tarry stools breathing problems changes in vision chest pain high blood pressure nausea or vomiting redness, blistering, peeling or loosening of the skin, including inside the mouth severe abdominal pain slurred speech or weakness on one side of the body unexplained weight gain or swelling unusual bleeding or bruising unusually weak or tired yellowing of eyes or skin Side effects that usually do not require medical attention (report to your doctor or health small animal caretaker if they continue or are bothersome): diarrhea dizziness headache heartburn What may interact with this medicine? Do not take this medicine with any of the following medications: aspirin and aspirin-like medicines cidofovir methotrexate NSAIDs, medicines for pain and inflammation, like ibuprofen or naproxen pemetrexed probenecid This medicine may also interact with the following medications: alcohol alendronate alprazolam carbamazepine cyclosporine diuretics flavocoxid fluoxetine ginkgo lithium medicines for high blood pressure like enalapril medicines that affect platelets like pentoxifylline medicines that treat or prevent blood clots like heparin, warfarin muscle relaxants phenytoin steroid medicines like prednisone or cortisone thiothixene What if I miss a dose? If you miss a dose, take it as soon as you can. If it is almost time for your next dose, take only that dose. Do not take double or extra doses. Where should I keep my medicine? Keep out of the reach of children. Store at room temperature between 20 and 25 degrees C (68 and 77 degrees F). Throw away any unused medicine after the expiration date. What should I tell my health care provider before I take this medicine? They need to know if you have any of these conditions: asthma bleeding problems like hemophilia cigarette smoker drink more than 3 alcohol containing drinks a day heart disease or circulation problems such as heart failure or leg edema (fluid retention) high blood pressure kidney disease liver disease stomach bleeding or ulcers an unusual or allergic reaction to ketorolac, aspirin, other NSAIDs, other medicines, foods, dyes, or preservatives or trying to get breast-feeding What should I watch for while using this medicine? Tell your doctor or health small animal caretaker if your pain does not get better. Talk to your doctor before taking another medicine for pain. Do not treat yourself. This medicine does not prevent heart attack or stroke. In fact, this medicine may increase the chance of a heart attack or stroke. The chance may increase with longer use of this medicine and in people who have heart disease. If you take aspirin to prevent heart attack or stroke, talk with your doctor or health small animal caretaker. Do not take medicines such as ibuprofen and naproxen with this medicine. Side effects such as stomach upset, nausea, or ulcers may be more likely to occur. Many medicines available without a prescription should not be taken with this medicine. This medicine can cause ulcers and bleeding in the stomach and intestines at any time during treatment. Do not smoke cigarettes or drink alcohol. These increase irritation to your stomach and can make it more susceptible to damage from this medicine. Ulcers and bleeding can happen without warning symptoms and can cause . You may get drowsy or dizzy. Do not drive, use machinery, or do anything that needs mental alertness until you know how this medicine affects you. Do not stand or sit up quickly, especially if you are an older patient. This reduces the risk of dizzy or fainting spells. This medicine can cause you to bleed more easily. Try to avoid damage to your teeth and gums when you brush or floss your teeth. You have been given the following additional information: Headache, Unspecified Uri, Viral, No Abx (Adult) Ondansetron Oral disintegrating tablet Ketorolac Tromethamine Oral tablet (Electronically signed by Kimberly Murray A.R.N.P. 07/12/2016 23:03)
--- NOTE | 2016-07-12 23:04 | ED MED RECONCILIATION SUMMARY ---
Patient: JOE CHRISTOPHER Medication Reconciliation Report [facility] VisitID: [id number] [address] [place] [address] 46y, F Registration Date/Time: 07/12/2016 Weight: 92.9 kg Height/Length: 66 in. BMI: 33.1 ALLERGIES: Benadryl, Chantix, Reglan The patient's Home Medications are listed below: THE FOLLOWING MEDICATIONS NEED TO BE RECONCILED: Coumadin Oral (5 mg) 1 tablet, daily Omeprazole Oral 40 mg, daily Oxybutynin Chloride Oral (5 mg) 1 tablet, 2x a day Percocet Oral (10-325 mg), 2x a day Propranolol HCl CR Oral 40mg , daily SUMAtriptan Succinate Oral 100mg Topiramate Oral 100 mg, 2x a day TraZODone HCl Oral 300mg, at bedtime The source(s) of the original Home Medication information: Not obtained. The following Medications were given to the patient in the Emergency Department: IV NS IV Fluids bolus 0, then 999 mL/hr, administered: 07/12/2016 8:04:00 PM Toradol [IVP] IVP 30 mg, administered: 07/12/2016 8:05:00 PM Zofran [IVP] IVP 4 mg, administered: 07/12/2016 8:39:00 PM The following Medications were prescribed to the patient: Zofran 4 mg: Take 1 orally every six hours as needed for nausea/vomiting. Dispense ten (10). No refills. Substitution is permissible. -- Kimberly Murray A.R.N.P. Toradol 10 mg tablets: Take 1 tablet orally every 6 hours as needed. Dispense fifteen (15). No refills. Substitution is permissible. -- Kimberly Murray A.R.N.P.
--- NOTE | 2016-07-12 23:04 | ED MAR SUMMARY ---
..... Medication Administration Record [facility] [address] [place] [address] Patient: JOE CHRISTOPHER Visit ID: [id number] 46y, F Weight: 92.9 kg Height/Length: 66 in BMI: 33.1 ALLERGIES: Benadryl, Chantix, Reglan Start 20:04 07/12/2016 Sheriff Davis R.N., Stop 20:42 07/12/2016 Sheriff Davis R.N. Medication Administered: IV NS (SALINE), Dose: IV Fluids over 1 hour(s), Rate: 999 mL/hr, Dispensed: 1000 mL bag, Site: #1 left AC. Medication Ordered: IV NS : initial bolus 1000 mL (1000 mL/hr), then none - (NOW). Given 20:05 07/12/2016 Sheriff Davis R.N. Medication Administered: TORADOL [IVP], Dose: 30 mg IVP over 1 minute(s), Site: #1 left AC. Medication Ordered: Toradol IV 30 mg (NOW). Given 20:39 07/12/2016 Sheriff Davis R.N. Medication Administered: ZOFRAN [IVP] (ONDANSETRON HCL), Dose: 4 mg IVP over 1 minute(s), Site: #1 left AC. Medication Ordered: Zofran IV 4 mg (NOW).
--- NOTE | 2016-07-12 23:04 | ED MED RECONCILIATION SUMMARY ---
Patient: JOE CHRISTOPHER Medication Reconciliation Report [facility] VisitID: [id number] [address] [place] [address] 46y, F Registration Date/Time: 07/12/2016 Weight: 92.9 kg Height/Length: 66 in. BMI: 33.1 ALLERGIES: Benadryl, Chantix, Reglan The patient's Home Medications are listed below: THE FOLLOWING MEDICATIONS NEED TO BE RECONCILED: Coumadin Oral (5 mg) 1 tablet, daily Omeprazole Oral 40 mg, daily Oxybutynin Chloride Oral (5 mg) 1 tablet, 2x a day Percocet Oral (10-325 mg), 2x a day Propranolol HCl CR Oral 40mg , daily SUMAtriptan Succinate Oral 100mg Topiramate Oral 100 mg, 2x a day TraZODone HCl Oral 300mg, at bedtime The source(s) of the original Home Medication information: Not obtained. The following Medications were given to the patient in the Emergency Department: IV NS IV Fluids bolus 0, then 999 mL/hr, administered: 07/12/2016 8:04:00 PM Toradol [IVP] IVP 30 mg, administered: 07/12/2016 8:05:00 PM Zofran [IVP] IVP 4 mg, administered: 07/12/2016 8:39:00 PM The following Medications were prescribed to the patient: Zofran 4 mg: Take 1 orally every six hours as needed for nausea/vomiting. Dispense ten (10). No refills. Substitution is permissible. -- Kimberly Murray A.R.N.P. Toradol 10 mg tablets: Take 1 tablet orally every 6 hours as needed. Dispense fifteen (15). No refills. Substitution is permissible. -- Kimberly Murray A.R.N.P.
--- NOTE | 2016-07-12 23:04 | ED MAR SUMMARY ---
..... Medication Administration Record [facility] [address] [place] [address] Patient: JOE CHRISTOPHER Visit ID: [id number] 46y, F Weight: 92.9 kg Height/Length: 66 in BMI: 33.1 ALLERGIES: Benadryl, Chantix, Reglan Start 20:04 07/12/2016 Sheriff Davis R.N., Stop 20:42 07/12/2016 Sheriff Davis R.N. Medication Administered: IV NS (SALINE), Dose: IV Fluids over 1 hour(s), Rate: 999 mL/hr, Dispensed: 1000 mL bag, Site: #1 left AC. Medication Ordered: IV NS : initial bolus 1000 mL (1000 mL/hr), then none - (NOW). Given 20:05 07/12/2016 Sheriff Davis R.N. Medication Administered: TORADOL [IVP], Dose: 30 mg IVP over 1 minute(s), Site: #1 left AC. Medication Ordered: Toradol IV 30 mg (NOW). Given 20:39 07/12/2016 Sheriff Davis R.N. Medication Administered: ZOFRAN [IVP] (ONDANSETRON HCL), Dose: 4 mg IVP over 1 minute(s), Site: #1 left AC. Medication Ordered: Zofran IV 4 mg (NOW).
== END 2016-07-12 22:05 | disposition home or self-care (01) ==
LOC: ED SRH 19:15
DX: G43.C0 Periodic headache syndromes in child or adult, not intractable (principal); J00 Acute nasopharyngitis [common cold]; I10 Essential (primary) hypertension; F17.210 Nicotine dependence, cigarettes, uncomplicated; Z79.899 Other long term (current) drug therapy; Z88.8 Allergy status to other drugs, medicaments and biological substances

== ENCOUNTER 2016-09-12 13:29 | Outpatient (CLI) | payer OTHER ==
--- NOTE | 2016-09-13 11:23 | DIAGNOSTIC IMAGING REPORT ---
PROCEDURE: MR LUMBAR SPINE W/WO CONTRAST INDICATION: LUMBAR BACK PAIN, HX OF SURGERY TECHNIQUE: Noncontrast T1, T2, and STIR sagittal images. T1 and T2 axial images. COMPARISON: None. FINDINGS: L1-2: Normal. L2-3: Normal. L3-4: Normal. L4-5: Postoperative changes at L4-5 on the left. No evidence of recurrent disc. There is asymmetry of the thecal sac which could be due to scarring or arachnoiditis. L5-S1: Normal. IMPRESSION: 1. Postoperative changes L4-5 on the left. No evidence of recurrent disc.
== END 2016-09-12 23:00 ==
LOC: MRI SRH 13:29
DX: M54.5 Low back pain (principal); Z98.890 Other specified postprocedural states
CPT/HCPCS: 90074; 90100

== ENCOUNTER 2016-11-11 18:44 | Emergency (ER) | payer OTHER ==
--- NOTE | 2016-11-11 20:32 | ED ORDER SUMMARY ---
..... Patient: JOE CHRISTOPHER OrderSheet [facility] VisitID: [id number] [address] [place] [address] 46y, F Registration Date/Time: 11/11/2016 ORDER SHEET Weight: 92.9 kg (stated) Allergies: Benadryl, Chantix, Reglan GENERAL ORDERS: MEDICATION ORDERS: Dilaudid IM 2 mg (HIGH ALERT MEDICATION, NOW) (19:35 11/11/2016 EKyoly P.A.-C) (Ack 19:40 RCollier R.N.) (19:48 RCollier R.N.) Phenergan IM 12.5 mg (HIGH ALERT MEDICATION, NOW) (19:35 11/11/2016 EKyoly P.A.-C) (Ack 19:40 RCollier R.N.) (19:49 RCollier R.N.) IV FLUIDS: ORDER SHEET NOTES: [Electronically signed by Lilly Nunez R.N. (21:03 11/11/2016)] [Electronically signed by Shanice Sorenson-Jono (21:21 11/11/2016)] [Electronically locked/signed by Lilly Nunez R.N. (21:03 11/11/2016)]
--- NOTE | 2016-11-11 20:32 | ED CLINICAL REPORT ---
Clinical Report - Physicians/Mid Levels [facility] [address] [place] [address] 11/11/2016 18:44 Patient: JOE CHRISTOPHER Time Seen: 1934. Arrived- By private vehicle. Historian- patient. HISTORY OF PRESENT ILLNESS Chief Complaint: BACK PAIN. Onset- 3 days. It is described as being in the area of the lower lumbar spine, right lower lumbar spine and right SI joint. The quality is noted to be "pain". No bladder dysfunction. Additional history - Patient with history of chronic back pain, lumbar issue, + sugar, history of fibromyalgia,second round of injection to her SI joint was onT, she started having more pain, sponsor they have Friday and Friday, and worsening of pain into her right lower extremity over the last 24 hours. Took oxycodone today. Patient reports pain worsens with any activity or movement. Denies any fall. Denies any saddle anesthesia. Denies any urinary incontinence. His denies any fevers or chills. Denies any can rash. PAST HISTORY Problems: URI. Abnormal Test. Anxiety Reaction. Chest Pain. Migraine Headache. Near Syncope. Torticollis. Costochondritis. Atypical Chest Pain. Pulmonary Embolism. Fibromyalgia. Pancreatitis. Hyperlipidemia. Hypertension. LNMP - Last Normal Menstrual Period. Immunizations. Hypercholesterolemia. Depression. Arthritis. Abdominal Pain. Vomiting. Back Pain. Headache. Additional Surgeries: Back Surgery. Carpal Tunnel Surgery. Dental Surgery. Hysterectomy. Oophorectomy. Medications: Migraine Relief Oral, as needed (replaced sumatriptan). Omeprazole Oral 40 mg, daily. Oxybutynin Chloride Oral (Tablet 5 mg) 1 tablet, 2x a day. Percocet Oral (Tablet 10-325 mg), 2x a day. Topiramate Oral 100 mg, 2x a day. TraZODone HCl Oral 300mg, at bedtime. Allergies: Benadryl. Chantix. Definite Moderate (More depressed) Reglan. Definite Severe (Hallucinations). ADDITIONAL NOTES The nursing notes have been reviewed. PHYSICAL EXAM Vital Signs: 11/11/2016 19:25 BP: 154/88. HR: 115. RR: 17. O2 saturation: 99%. Temp: 98.4 F. Pain level now: 10/10. Appearance: Alert. Eyes: Pupils equal, round and reactive to light. ENT: Ears normal. Neck: Normal inspection. CVS: Heart sounds normal. Pulses normal. No decreased pulses. Respiratory: No respiratory distress. Breath sounds normal. Abdomen: No visible injury. Soft. Bowel sounds normal. No abdominal tenderness or rebound tenderness. Back: (si tenderness, no swelling, pain with rom, good distal sensation of right le, + DTR. NO skin rash or overlying swelling/ erythema.). Skin: Skin warm. Normal skin color. Neuro: Oriented X 3. PROGRESS AND PROCEDURES Course of Care: Here in the emergency Department patient with signs of right lumbar tenderness and pain at the SI area. No overlying swelling or skin disruption. Patient with good distal sensation, do not suspect cord compression Her pain was relieved with Dilaudid, she had good strength of her right lower extremity. Discussed need for consistent pain management with patient, concerning regard to her being out of medications and scheduling appointment 2 days after such. There are no risks for spinal epidural abscess or hematoma as patient is without any risk factors such as IVDA or evidence of active infection, no midline tenderness to percussion. Hence I do not feel emergent imaging with an MRI is indicated. However I did discuss with the patient that if these symptoms develop, or if the pain does not resolve an MRI may need to be done outpatient, or in the ED if symptoms worsen acutely or new onset of the above mentioned symptoms develop. 11/11/2016 20:50 BP: 134/109. HR: 98. RR: 16. O2 saturation: 100%. Pain level now: 4/10. Patient is stable. Physical exam findings are improved. Symptoms better. Patient/family counseled. Disposition: Discharged. Condition: good. CLINICAL IMPRESSION Lumbar strain (acute on chronic). INSTRUCTIONS Apply ice. (ice/ heat follow up with clinic/ zeferino in 1-2 days). Prescription Medications: Oxycodone/APAP 10 mg/325 mg: take 1 tablet orally as needed for pain. Dispense ten (10). No refill. Follow-up: Follow up with your doctor tomorrow. (Electronically signed by Shanice Sorenson P.A.-C 11/11/2016 21:21)
--- NOTE | 2016-11-11 20:32 | ED ORDER SUMMARY ---
..... Patient: JOE CHRISTOPHER OrderSheet [facility] VisitID: [id number] [address] [place] [address] 46y, F Registration Date/Time: 11/11/2016 ORDER SHEET Weight: 92.9 kg (stated) Allergies: Benadryl, Chantix, Reglan GENERAL ORDERS: MEDICATION ORDERS: Dilaudid IM 2 mg (HIGH ALERT MEDICATION, NOW) (19:35 11/11/2016 EKyoly P.A.-C) (Ack 19:40 RCollier R.N.) (19:48 RCollier R.N.) Phenergan IM 12.5 mg (HIGH ALERT MEDICATION, NOW) (19:35 11/11/2016 EKyoly P.A.-C) (Ack 19:40 RCollier R.N.) (19:49 RCollier R.N.) IV FLUIDS: ORDER SHEET NOTES: [Electronically signed by Lilly Nunez R.N. (21:03 11/11/2016)] [Electronically signed by Shanice Sorenson-Jono (21:21 11/11/2016)] [Electronically locked/signed by Lilly Nunez R.N. (21:03 11/11/2016)]
--- NOTE | 2016-11-11 20:32 | ED NURSING NOTES ---
Clinical Report - Nurses [facility] [address] [place] [address] 11/11/2016 18:44 Patient: JOE CHRISTOPHER TRIAGE Triage time 19:25. Acuity: LEVEL 4. Chief Complaint: (pain on right side of SI joint (after injection)). Alert. --19:39 Lilly Nunez R.N. 19:25 11/11/16. BP: 154/88. HR: 115. RR: 17 (regular and unlabored). O2 saturation: 99% on room air. Temp: 98.4 F. Pain level now: 02/04. --19:39 Lilly Nunez R.N. Weight: 92.9 kg stated. Height/Length: 67 inches Per Patient. BMI: 32.1. --19:36 Lilly Nunez R.N. Medications Omeprazole Oral 40 mg, daily. Oxybutynin Chloride Oral (Tablet 5 mg) 1 tablet, 2x a day. Percocet Oral (Tablet 10-325 mg), 2x a day. Topiramate Oral 100 mg, 2x a day. TraZODone HCl Oral 300mg, at bedtime. --19:31 Lilly Nunez R.N. Migraine Relief Oral, as needed (replaced sumatriptan). --19:38 Lilly Nunez R.N. The following entry was struck by Lilly Nunez R.N., 19:37 (11/11/16) Reason - other. <<STRICKEN ENTRY-- SUMAtriptan Succinate Oral 100mg. --19:31 Lilly Nunez R.N. --END STRIKE>> The following entry was struck by Lilly Nunez R.N., 19:37 (11/11/16) Reason - other. <<STRICKEN ENTRY-- Propranolol HCl CR Oral 40mg , daily. --19:31 Lilly Nunez R.N. --END STRIKE>>. Allergies Benadryl. Chantix. Definite Moderate (More depressed) Reglan. Definite Severe (Hallucinations) --19:31 Lilly Nunez R.N. History Arrived by private vehicle. Historian: patient. Primary physician (Aashish). ( pt received an injection from the [facility] 4 days ago for SI joint pain, pt reports pain has increased to the point of not being able to bear weight.). Onset. (about 3 - 4 days ago). SOCIAL HX: Heavy tobacco smoker (cigarette)- less than 1 pack per day. No alcohol use or drug use. NUTRITIONAL RISK ASSESSMENT: The nutritional risk assessment revealed no deficiencies. FUNCTIONAL ASSESSMENT: Functional assessment: no impairments noted. --19:39 Lilly Nunez R.N. PROBLEMS: Anxiety Reaction. Migraine Headache. Torticollis. Costochondritis. Atypical Chest Pain. Pulmonary Embolism. Fibromyalgia. Pancreatitis. Hyperlipidemia. Hypercholesterolemia. Depression. Arthritis. --19:38 Lilly Nunez R.N. Migraine Headache [RuleOut]. Gastroenteritis [RuleOut]. Pancreatitis [RuleOut]. --19:38 Lilly Nunez R.N. ADDITIONAL SURGERIES: Back Surgery. Carpal Tunnel Surgery. Dental Surgery. Hysterectomy. Oophorectomy. --19:38 Lilly Nunez R.N. Interventions ID band on patient. To treatment room. --19:39 Lilly Nunez R.N. PHYSICAL ASSESSMENT To room via wheelchair. Patient gowned. GENERAL / NEURO / PSYCH: Alert. Oriented X 4. Appears in pain. HEENT: Mucous membranes are pink. RESPIRATORY: Respirations not labored. CVS: Capillary refill less than 2 seconds. SKIN: Skin is warm and dry. --19:39 Lilly Nunez R.N. NURSING PROGRESS NOTES Head of bed elevated. Two patient identifiers checked. Call light placed in reach. Side rails up x 1. Bed placed in lowest position. Brakes of bed on. --19:39 Lilly Nunez R.N. Patient ready for evaluation- chart flagged. --19:40 Lilly Nunez R.N. 19:45 11/11/2016 Dilaudid (HYDROmorphone HCl PF) IM 2 mg given. Given in the right ventral gluteus. Allergies verified, confirmed 5 rights and sedative warning given to the patient. (mixed with Phenergan IM). --19:48 Lilly Nunez R.N. 19:45 11/11/2016 Phenergan (Promethazine HCl) IM 12.5 mg given. Given in the right ventral gluteus. Allergies verified, confirmed 5 rights and sedative warning given to the patient. (mixed in syringe with Dilaudid IM). --19:49 Lilly Nunez R.N. Reassessment after medication administered. Overall patient status- she states feels better (pt reports her pain is better and she is able to take some steps without the weakness she was reporting upon arrival. EDPA aware and at bedside for reassesment). --20:26 Lilly Nunez R.N. DISPOSITION / DISCHARGE 20:50 11/11/16. BP: 134/109. HR: 98. RR: 16 (regular and unlabored). O2 saturation: 100% on room air. Temp: deferred. Pain level now: 08/05. --21:03 Lilly Nunez R.N. ( Condition at departure: improved and stable. No learning barriers present. Discharge instructions provided and reviewed with the patient. Reviewed medication(s) side effects, precautions, dosing and course information. Prescription(s) given to the patient. Patient verbalized understanding. Written instructions provided in Tunisian. The patient was discharged home and accompanied by spouse. He left the Emergency Department in a wheelchair and via private vehicle. Spouse driving. ( pt tearful upon discharge, states she is out of her pain medication and has an appointment scheduled in 3 days but that her provider "hates" her and wont fill the Rx or get her in to be seen sooner. EDPA aware.). 21:00 Lilly Nunez R.N.). --21:03 Lilly Nunez R.N. Locked/Released at 11/11/2016 21:03 by Lilly Nunez R.N.
--- NOTE | 2016-11-11 21:21 | ED DISCHARGE INSTRUCTIONS ---
Patient: JOE CHRISTOPHER General Instructions [facility] VisitID: [id number] [place] [address] 46y, F Registration Date/Time: 11/11/2016 Lumbar strain (acute on chronic). INSTRUCTIONS Apply ice. (ice/ heat follow up with clinic/ mcgarry in 1-2 days). Prescription Medications: Oxycodone/APAP 10 mg/325 mg: take 1 tablet orally as needed for pain. Dispense ten (10). No refill. Follow-up: Follow up with your doctor tomorrow. ADDITIONAL INFORMATION Back Pain [Acute Or Chronic] Back pain is usually caused by an injury to the muscles or ligaments of the spine. Sometimes the disks that separate each bone in the spine may bulge and cause pain by pressing on a nearby nerve. Back pain may also appear after a sudden twisting/bending force (such as in a car accident), after a simple awkward movement, or lifting something heavy with poor body positioning. In either case, muscle spasm is often present and adds to the pain. Acute back pain usually gets better in one to two weeks. Back pain related to disk disease, arthritis in the spinal joints or spinal stenosis (narrowing of the spinal canal) can become chronic and last for months or years. Unless you had a physical injury (for example, a car accident or fall) X-rays are usually not ordered for the initial evaluation of back pain. If pain continues and does not respond to medical treatment, x-rays and other tests may be performed at a later time. Home Care: You may need to stay in bed the first few days. But, as soon as possible, begin sitting or walking to avoid problems with prolonged bed rest (muscle weakness, worsening back stiffness and pain, blood clots in the legs). When in bed, try to find a position of comfort. A firm mattress is best. Try lying flat on your back with pillows under your knees. You can also try lying on your side with your knees bent up towards your chest and a pillow between your knees. Avoid prolonged sitting. This puts more stress on the lower back than standing or walking. During the first two days after injury, apply an ICE PACK to the painful area for 20 minutes every 2-4 hours. This will reduce swelling and pain. HEAT (hot shower, hot bath or heating pad) works well for muscle spasm. You can start with ice, then switch to heat after two days. Some patients feel best alternating ice and heat treatments. Use the one method that feels the best to you. You may use acetaminophen (Tylenol) or ibuprofen (Motrin, Advil) to control pain, unless another pain medicine was prescribed. [NOTE: If you have chronic liver or kidney disease or ever had a stomach ulcer or GI bleeding, talk with your doctor before using these medicines.] Be aware of safe lifting methods and do not lift anything over 15 pounds until all the pain is gone. Follow Up with your doctor or this facility if your symptoms do not start to improve after one week. Physical therapy may be needed. [NOTE: If X-rays were taken, they will be reviewed by a radiologist. You will be notified of any new findings that may affect your care.] Get Prompt Medical Attention if any of the following occur: Pain becomes worse or spreads to your legs Weakness or numbness in one or both legs Loss of bowel or bladder control Numbness in the groin or genital area Oxycodone Hydrochloride, Acetaminophen Oral tablet What is this medicine? ACETAMINOPHEN; OXYCODONE (a set a MAGDI lyndon fen; ox i KOE done) is a pain reliever. It is used to treat mild to moderate pain. How should I use this medicine? Take this medicine by mouth with a full glass of water. Follow the directions on the prescription label. Take your medicine at regular intervals. Do not take your medicine more often than directed. Talk to your artist blacksmith regarding the use of this medicine in children. Special care may be needed. Patients over 65 years old may have a stronger reaction and need a smaller dose. What side effects may I notice from receiving this medicine? Side effects that you should report to your doctor or health acute care nursing assistant as soon as possible: allergic reactions like skin rash, itching or hives, swelling of the face, lips, or tongue breathing difficulties, wheezing confusion light headedness or fainting spells severe stomach pain yellowing of the skin or the whites of the eyes Side effects that usually do not require medical attention (report to your doctor or health acute care nursing assistant if they continue or are bothersome): dizziness drowsiness nausea vomiting What may interact with this medicine? alcohol antihistamines barbiturates like amobarbital, butalbital, butabarbital, methohexital, pentobarbital, phenobarbital, thiopental, and secobarbital benztropine drugs for bladder problems like solifenacin, trospium, oxybutynin, tolterodine, hyoscyamine, and methscopolamine drugs for breathing problems like ipratropium and tiotropium drugs for certain stomach or intestine problems like propantheline, homatropine methylbromide, glycopyrrolate, atropine, belladonna, and dicyclomine general anesthetics like etomidate, ketamine, nitrous oxide, propofol, desflurane, enflurane, halothane, isoflurane, and sevoflurane medicines for depression, anxiety, or psychotic disturbances medicines for sleep muscle relaxants naltrexone narcotic medicines (opiates) for pain phenothiazines like perphenazine, thioridazine, chlorpromazine, mesoridazine, fluphenazine, prochlorperazine, promazine, and trifluoperazine scopolamine tramadol trihexyphenidyl What if I miss a dose? If you miss a dose, take it as soon as you can. If it is almost time for your next dose, take only that dose. Do not take double or extra doses. Where should I keep my medicine? Keep out of the reach of children. This medicine can be abused. Keep your medicine in a safe place to protect it from theft. Do not share this medicine with anyone. Selling or giving away this medicine is dangerous and against the law. Store at room temperature between 20 and 25 degrees C (68 and 77 degrees F). Keep container tightly closed. Protect from light. This medicine may cause accidental overdose and if it is taken by other adults, children, or pets. Flush any unused medicine down the toilet to reduce the chance of harm. Do not use the medicine after the expiration date. What should I tell my health care provider before I take this medicine? They need to know if you have any of these conditions: brain tumor Crohn's disease, inflammatory bowel disease, or ulcerative colitis drink more than 3 alcohol containing drinks per day drug abuse or addiction head injury heart or circulation problems kidney disease or problems going to the bathroom liver disease lung disease, asthma, or breathing problems an unusual or allergic reaction to acetaminophen, oxycodone, other opioid analgesics, other medicines, foods, dyes, or preservatives or trying to get breast-feeding What should I watch for while using this medicine? Tell your doctor or health acute care nursing assistant if your pain does not go away, if it gets worse, or if you have new or a different type of pain. You may develop tolerance to the medicine. Tolerance means that you will need a higher dose of the medication for pain relief. Tolerance is normal and is expected if you take this medicine for a long time. Do not suddenly stop taking your medicine because you may develop a severe reaction. Your body becomes used to the medicine. This does NOT mean you are addicted. Addiction is a behavior related to getting and using a drug for a non-medical reason. If you have pain, you have a medical reason to take pain medicine. Your doctor will tell you how much medicine to take. If your doctor wants you to stop the medicine, the dose will be slowly lowered over time to avoid any side effects. You may get drowsy or dizzy. Do not drive, use machinery, or do anything that needs mental alertness until you know how this medicine affects you. Do not stand or sit up quickly, especially if you are an older patient. This reduces the risk of dizzy or fainting spells. Alcohol may interfere with the effect of this medicine. Avoid alcoholic drinks. There are different types of narcotic medicines (opiates) for pain. If you take more than one type at the same time, you may have more side effects. Give your health care provider a list of all medicines you use. Your doctor will tell you how much medicine to take. Do not take more medicine than directed. Call emergency for help if you have problems breathing. The medicine will cause constipation. Try to have a bowel movement at least every 2 to 3 days. If you do not have a bowel movement for 3 days, call your doctor or health acute care nursing assistant. Do not take Tylenol (acetaminophen) or medicines that have acetaminophen with this medicine. Too much acetaminophen can be very dangerous. Many nonprescription medicines contain acetaminophen. Always read the labels carefully to avoid taking more acetaminophen. You have been given the following additional information: Back Pain (Acute Or Chronic) Oxycodone Hydrochloride, Acetaminophen Oral tablet (Electronically signed by Shanice Sorenson P.A.-C 11/11/2016 21:21)
--- NOTE | 2016-11-11 21:21 | ED MAR SUMMARY ---
..... Medication Administration Record [facility] [address] [place] [address] Patient: JOE CHRISTOPHER Visit ID: [id number] 46y, F Weight: 92.9 kg Height/Length: 67 in BMI: 32.1 ALLERGIES: Benadryl, Chantix, Reglan Given 19:45 11/11/2016 Lilly Nunez, RJezN. Medication Administered: DILAUDID [IM] (HYDROMORPHONE HCL PF), Dose: 2 mg IM. Medication Ordered: Dilaudid IM 2 mg (HIGH ALERT MEDICATION, NOW). Given 19:45 11/11/2016 Lilly Nunez, RJezN. Medication Administered: PHENERGAN [IM] (PROMETHAZINE HCL), Dose: 12.5 mg IM. Medication Ordered: Phenergan IM 12.5 mg (HIGH ALERT MEDICATION, NOW).
--- NOTE | 2016-11-11 21:21 | ED MAR SUMMARY ---
..... Medication Administration Record [facility] [address] [place] [address] Patient: JOE CHRISTOPHER Visit ID: [id number] 46y, F Weight: 92.9 kg Height/Length: 67 in BMI: 32.1 ALLERGIES: Benadryl, Chantix, Reglan Given 19:45 11/11/2016 Lilly Nunez, RJezN. Medication Administered: DILAUDID [IM] (HYDROMORPHONE HCL PF), Dose: 2 mg IM. Medication Ordered: Dilaudid IM 2 mg (HIGH ALERT MEDICATION, NOW). Given 19:45 11/11/2016 Lilly Nunez, RJezN. Medication Administered: PHENERGAN [IM] (PROMETHAZINE HCL), Dose: 12.5 mg IM. Medication Ordered: Phenergan IM 12.5 mg (HIGH ALERT MEDICATION, NOW).
--- NOTE | 2016-11-11 21:21 | ED MED RECONCILIATION SUMMARY ---
Patient: JOE CHRISTOPHER Medication Reconciliation Report [facility] VisitID: [id number] [address] [place] [address] 46y, F Registration Date/Time: 11/11/2016 Weight: 92.9 kg Height/Length: 67 in. BMI: 32.1 ALLERGIES: Benadryl, Chantix, Reglan The patient's Home Medications are listed below: THE FOLLOWING MEDICATIONS NEED TO BE RECONCILED: Migraine Relief Oral, replaced sumatriptan Omeprazole Oral 40 mg, daily Oxybutynin Chloride Oral (5 mg) 1 tablet, 2x a day Percocet Oral (10-325 mg), 2x a day Topiramate Oral 100 mg, 2x a day TraZODone HCl Oral 300mg, at bedtime The source(s) of the original Home Medication information: Not obtained. The following Medications were given to the patient in the Emergency Department: Dilaudid [IM] IM 2 mg, administered: 11/11/2016 7:45:00 PM Phenergan [IM] IM 12.5 mg, administered: 11/11/2016 7:45:00 PM The following Medications were prescribed to the patient: Oxycodone/APAP 10 mg/325 mg: take 1 tablet orally as needed for pain. Dispense ten (10). No refill. -- Shanice Sorenson P.A.-C
--- NOTE | 2016-11-11 21:21 | ED MED RECONCILIATION SUMMARY ---
Patient: JOE CHRISTOPHER Medication Reconciliation Report [facility] VisitID: [id number] [address] [place] [address] 46y, F Registration Date/Time: 11/11/2016 Weight: 92.9 kg Height/Length: 67 in. BMI: 32.1 ALLERGIES: Benadryl, Chantix, Reglan The patient's Home Medications are listed below: THE FOLLOWING MEDICATIONS NEED TO BE RECONCILED: Migraine Relief Oral, replaced sumatriptan Omeprazole Oral 40 mg, daily Oxybutynin Chloride Oral (5 mg) 1 tablet, 2x a day Percocet Oral (10-325 mg), 2x a day Topiramate Oral 100 mg, 2x a day TraZODone HCl Oral 300mg, at bedtime The source(s) of the original Home Medication information: Not obtained. The following Medications were given to the patient in the Emergency Department: Dilaudid [IM] IM 2 mg, administered: 11/11/2016 7:45:00 PM Phenergan [IM] IM 12.5 mg, administered: 11/11/2016 7:45:00 PM The following Medications were prescribed to the patient: Oxycodone/APAP 10 mg/325 mg: take 1 tablet orally as needed for pain. Dispense ten (10). No refill. -- Shanice Sorenson P.A.-C
== END 2016-11-11 20:50 | disposition home or self-care (01) ==
LOC: ED SRH 18:44
DX: S39.012A Strain of muscle, fascia and tendon of lower back, initial encounter (principal); X58.XXXA Exposure to other specified factors, initial encounter; Y93.9 Activity, unspecified; Y92.9 Unspecified place or not applicable; Y99.9 Unspecified external cause status; E78.5 Hyperlipidemia, unspecified; I10 Essential (primary) hypertension; F17.210 Nicotine dependence, cigarettes, uncomplicated; E78.00 Pure hypercholesterolemia, unspecified; Z79.899 Other long term (current) drug therapy